=== PATIENT | female | born 1965 | race Caucasian/White ===

== ENCOUNTER 2016-06-28 09:19 | Inpatient (IN) | payer SELFPAY ==
[~2016-06-28] VITALS: Ht 170.2 cm; Wt 132.4 kg
[2016-06-28] VITALS (14 sets, daily range): BP systolic 101–126; BP diastolic 46–76; PULSE 71–122; RESP 15–24; O2SAT 93–100
[2016-06-28] MEDS ORDERED: Ipratropium 0.02% 0.5 mg/2.5 mL Inhalation Solution NEB ONE (09:30)
[2016-06-28] MEDS ORDERED: Albuterol 0.5% (5mg/mL) 20 mL Inhalation Solution NEB ONE (09:30)
--- NOTE | 2016-06-28 09:30 | ED.REPORT ---
HPI-Dyspnea / Wheezing Date of Service June 28, 2016 ED Provider: Douglas Kaye MD 50 y/o female with a hx of asthma and sleep apnea reports to the ED complaining of SOB, onset a couple of days ago. The pt reports she has been experiencing worsening SOB over the past month but the sx have significantly exacerbated in the last few days. Associated sx include non-productive cough, mild lower extremity swelling and chest tightness which is common during her asthma attacks. The pt denies fever, diaphoresis, chills, nausea and vomiting. She has had similar asthma attacks before but today's sx seem worse. The pt used her nebulizer three times before arriving at the ED but it didn't improve her sx. Typically, the pt takes cetirizine everyday and uses QVAR with a spacer prn which keeps her asthma under control. Recently, she has had to use her nebulizer more often. Pt reports being hospitalized due to her asthma 5 times in the past. Nursing Notes Stated Complaint: SHORT OF BREATH Chief Complaint: Respiratory Distress Nursing Notes Reviewed: Yes (F[employer]Tunes not reconciled) Allergies: Coded Allergies: prednisone (Verified Allergy, Unknown, 02/27/14) Scheduled Beclomethasone Dipropionate (Qvar) 8.7 Gm Aer.w.adap 1 PUFF INHALATION BID Cetirizine HCl (Zyrtec) 10 Mg Capsule 10 MG PO HS Multivitamin (Multi Vitamin Daily) 1 Each Tablet 1 EACH PO DAILY Scheduled PRN Albuterol Sulfate (Ventolin HFA Inhaler) 200 Puff/18 Gm Inhaler 1 PUFF INH Q4 PRN PRN For Wheezing General Time Seen by MD: 09:27 Chief Complaint Shortness of breath Hx Obtained From: Patient Arrived By: Walk-in Sudden in Onset?: No Onset Occurred: 2 days ago Symptom Duration: Since onset Location: : Substernal Quality: Cramping Severity: Current: Mild Severity: Maximum: Mild Recent Healthcare: No recent doctor visit Similar Sx Previous: Yes Past Medical History Past Medical History Notes: NOTE for 06/28/16: Patient reports gets joint pains and swelling w/prednisone, tolerates QVAR, does not tolerate prednisilone On MDI w/spacer at baseline (only needs irregularly), maintenance QVAR, and takes Zyrtec frequently. Has been using MDI, then nebulizer w/increasing frequency past few days. Past Medical History Asthma (patient reports 5 previous admissions, [facility], for asthma, never been intubated) Obstructive sleep apnea on CPAP Migraines Reports: Asthma Past Surgical History none reported Smoking History Never Smoker Ambulatory Status Independent Review of Systems Reports: Chest tightness Constitutional: Denies: Chills, Fever Respiratory: Reports: Non-productive cough, Shortness of breath Cardiovascular: Reports: Edema Skin: Denies Diaphoresis Complete sys rev & neg: except as marked. GI: Denies: Nausea, Vomiting Physical Exam Initial Vital Signs Vital Signs (First) Date Time Temp Pulse Resp B/P Pulse Ox O2 Delivery O2 Flow Rate FiO2 06/28/16 09:21 36.4 76 24 126/76 100 Room Air 06/28/16 09:30 2 Initial VS: Reviewed, Vital signs abnormal (tachypnea) Head / Eyes: Atraumatic, Normocephalic, PERRL ENT: Mucous membranes moist, Conjunctiva normal, No scleral icterus Abdomen / GI: Soft, Non-tender, No guarding, No rebound, No distention Extremities: Vascular intact, Neuro intact, No swelling, No tenderness Skin: Warm, Dry, No cyanosis Neurologic: Alert, Oriented, Nonfocal General/Constitutional: Awake, Alert, Cooperative Appearance / Presentation: Positive: Obese Neck: Atraumatic, Supple, Full range of motion Respiratory / Chest: Atraumatic, No chest tenderness Wheezing / Retractions: Positive: Wheezing mild Pt is visibly dyspneic with bronchospasms. Poor air movement. Cardiovascular: Regular rhythm, Heart sounds NL, No gallop, No murmurs Heart Rate / Rhythm: Positive: Tachycardia No pitting edema of lower extremities Interpretation & Diagnostics Lab Results Interpretation Result Diagram: 06/28/16 0943 06/28/16 0943 Test 06/28/16 09:43 06/28/16 13:25 White Blood Count 6.3th/mm3 (3.8-10.1) Red Blood Count 4.74mil/mm3 (3.90-5.20) Hemoglobin 13.6g/dL (12.0-15.6) Hematocrit 41.3% (35.0-46.0) Mean Corpuscular Volume 87.1fL (81-100) Mean Corpuscular Hemoglobin 28.7pg (27.0-35.0) Mean Corpuscular Hemoglobin Concent 32.9% (32.0-37.0) Red Cell Distribution Width 13.5% (12.3-15.4) Platelet Count 262bil/L (150-400) Neutrophils (%) (Auto) 57.7% (40-74) Lymphocytes (%) (Auto) 29.0% (14-46) Monocytes (%) (Auto) 7.6% (4-12) Eosinophils (%) (Auto) 5.0% (0-5) Basophils (%) (Auto) 0.5% (0-3) D-Dimer < 0.50mg/L FEU (<0.50) Sodium Level 141mEq/L (134-144) Potassium Level 3.3mEq/L (3.5-5.2) Chloride Level 103mEq/L (97-108) Carbon Dioxide Level 21mmol/L (18-29) Blood Urea Nitrogen 12mg/dL (6-24) Creatinine 0.77mg/dL (0.57-1.00) Estimat Glomerular Filtration Rate 113mL/min (>59) Glucose Level 109mg/dL (60-99) Calcium Level 9.4mg/dL (8.5-10.1) Total Bilirubin 0.6mg/dL (0.0-1.2) Aspartate Amino Transf (AST/SGOT) 20U/L (0-50) Alanine Aminotransferase (ALT/SGPT) 16U/L (0-32) Alkaline Phosphatase 103U/L (25-150) Troponin T 0.010ug/L (0.0-0.011) Pro-B-Type Natriuretic Peptide 82.64pg/mL (0-249) Total Protein 7.6g/dL (6.4-8.4) Albumin 3.9g/dL (3.4-5.0) Hold Whitt Top Tube Received (Received) Urine Color Straw (YELLOW) Urine Appearance Clear (CLEAR,HAZY) Urine pH 6.5 (5.0-8.0) Urine Specific [place] 1.015 (1.003-1.035) Urine Protein Negativemg/dL (NEG,TRACE) Urine Glucose (UA) Negativemg/dL (NEGATIVE) Urine Ketones Negativemg/dL (NEGATIVE) Urine Occult Blood Negative (NEGATIVE) Urine Nitrite Negative (NEGATIVE) Urine Bilirubin Negative (NEGATIVE) Urine Urobilinogen Normalmg/dL (NORMAL) Urine Leukocyte Esterase Negative (NEGATIVE) Urine RBC 0-2/hpf (0-2) Urine WBC 0-5/hpf (0-5) Urine Epithelial Cells Occasional/hpf (NONE-MOD) Urine Crystals None seen (NONE SEEN) Urine Bacteria None/hpf (NONE-FEW) Urine Hyaline Casts None/lpf (NONE) Urine Granular Casts None seen (NONE SEEN) Urine Waxy Casts None seen (NONE SEEN) Urine Red Blood Cell Casts None seen (NONE SEEN) Urine White Blood Cell Casts None seen (NONE SEEN) Urine Mucus None seen (None Seen) Urine Trichomonas None seen (NONE SEEN) Urine Yeast None (NONE SEEN) Urinalysis Comment None Urine Culture Reflexed Not indicated Lab Results Interpretation: CBC normal CMP mild hypokalemia-possibly albuterol induced given large doses administered Troponin negative ProBNP negative is no evidence of congestive heart failure D-dimer negative with no evidence of PE ECG Interpretation ECG Interpretation: EKG from urgent care demonstrates a normal sinus rhythm at a rate of 77, no acute ischemic changes identified, no prior EKG provided for comparison Time: 09:26 Interpreted by: ED physician ECG Interpretation: Normal sinus rhythm. Rate 69. No abnormalities. No interval change from the EKG taken at Urgent Care. Time: 09:50 Interpreted by: ED physician X-Ray Chest Interpretation Chest Xray Interpretation: IMPRESSION: No acute process. Dictated by: Cj Webber M.D. on 06/28/2016 at 9:51 Approved by: Cj Webber M.D. on 06/28/2016 at 9:52 View: Portable, 1 view Interpretation / Wet Read by: Interpret - Radiologist Re-Eval/Medical Decision Med Decision/Clinical Course This is a 50-year-old female with a history of asthma as had multitude of hospital admissions for asthma, but never been intubated before she feels like her asthma has been acting up over the past month, and then got worse over the past few days. He matters she reports an "allergy" to prednisone, indicating that it causes joint swelling and pain. She has been on daily Qvar without difficulty,. She has had no fever, no productive cough or clear infectious symptoms-she does have a mild dry cough which happens with her asthma. She has a test tightness that is typical of her asthma, but no other features suggesting a cardiac etiology. She arrives tachypneic, with audible bronchospasm-but not hypoxic and in only moderate distress. She is obese. The rest of her exam is normal except for the bronchospasm. The patient received multiple rounds of albuterol, she received magnesium, chest x-ray is negative, EKG revealed no acute ischemic changes, and blood work was normal including negative d-dimer, troponin, or markers suggest infectious or alternative pathology. Clinically everything is pointing at than an acute asthma exacerbation. Patient did seem to respond slightly to beta agonist, remains still symptomatic with ongoing mild bronchospasm for multitude of hours. She initially thought she was turning around and up she might go home-- after numerous rounds of nebulizers to the point of causing some tremulousness and tachycardia, the patient is still symptomatic and decided she is not adequate for discharge home and I agree. Currently the conversation regarding risks and benefits I have been able to persuade the patient rule out a dose of dexamethasone which was administered without apparent difficulty or consequence and was tolerating. The patient also received empiric magnesium. At this point the patient reveals mildly tachypnea, ongoing bronchospasm and all improved and does not require unit or even necessarily PCU care and is not required BiPAP therapy-the plan is admission for continued asthma exacerbation management. I am not finding indication for treatment with antibiotics at this time. Source of Hx: Old records Re-Evaluation/Progress #1: Time of Eval: 10:40 Re-Evaluation/Progress Note: Pt rechecked. Informed of the lab and imaging results. There is mild SOB Re-Evaluation/Progress #2: Time of Eval: 11:38 Re-Evaluation/Progress Note: Pt rechecked. Pt is jittery and is worried it is due to steroid. Informed the pt it is likely the increased dose of albuterol. Some SOB persists but pt reports feeling better overall. Re-Evaluation/Progress #3: Time of Eval: 15:17 Patient Status: Condition improved Re-Evaluation/Progress Note: Pt feels better than when she arrived but she is still bronchospastic and slightly SOB. Pt rechecked. Discussed lab, imaging results and plan to admit. Pt understands and agrees with the plan for admission. All questions addressed. Consultation : Referral / Consult Name: Steffanie Wolfe DO Consulted With: Hospitalist Call Returned at: 16:48 Melt Room Operator: Will see patient, Agrees with eval, Agrees with plan, Accepts admit Differential Diagnosis: Positive: Asthma, Respiratory insufficiency, Negative: Acute coronary syndrome, Allergic reaction, Carbon monoxide poisoning, Cardiogenic shock, Congestive heart failure, Exercise induced asthma , Hypertensive emergency, Hyperventilation, Inhalation injury, Myocardial infarction, Pneumonia, Pneumothorax, Respiratory failure Counseled Regarding: Diagnosis, Lab results, Need for admission Discharge & Departure Impression: Primary Impression: Acute asthma exacerbation Asthma severity: moderate persistent Qualified Code: J45.41 - Moderate persistent asthma with (acute) exacerbation Disposition: ADMITTED TO HOSPITAL Discharge Condition All VS Reviewed: Yes Referrals: Tulio Sterling MD (PCP) Scribe Attestation Portions of this note were transcribed by Srikanth Conrad. I, , personally performed the history, physical exam and medical decision-making;I reviewed and confirmed the accuracy of the information in the transcribed note. Signed by Han Jones. 06/28/16 [id number] copies to: Tulio Sterling MD, Matthew F MD June 28, 2016 09:30 Srikanth Conrad June 28, 2016 09:46
[2016-06-28 09:52] LABS: BASOPHILS % (AUTO) 0.5 % (0-3); MONOCYTES % (AUTO) 7.6 % (4-12); Mean Corpuscular Hemoglobin 28.7 pg (27.0-35.0); Mean Corpuscular Volume 87.1 fL (81-100); NEUTROPHILS % (AUTO) 57.7 % (40-74); Platelet Count 262 bil/L (150-400)
--- NOTE | 2016-06-28 09:53 | DRSVH ---
PROCEDURE: X-RAY CHEST ONE VIEW, PORTABLE ([id number]) INDICATIONS: SOB TECHNIQUE: One view of the chest was acquired. COMPARISON: None. FINDINGS: Surgical changes and devices: None. Lungs and pleura: No pleural effusions or pneumothorax. Lungs are clear. Mediastinum: Mediastinal contours appear normal. Heart size is normal. Bones and chest wall: No suspicious bony lesions. Overlying soft tissues appear unremarkable. IMPRESSION: No acute process. Dictated by: Cj Webber M.D. on 06/28/2016 at 9:51 Approved by: Cj Webber M.D. on 06/28/2016 at 9:52
[2016-06-28] MEDS ORDERED: Magnesium Sulf 2 Gm/50mL Water 2 GM in IV Premix 1 EACH IV ONE (09:55)
[2016-06-28] MEDS ORDERED: Dexamethasone Inj 10 MG in 0.9% Sodium Chloride-Pha MIX 50 ML IV ONE (09:55)
[2016-06-28] MEDS ORDERED: MULT-1018 PO (10:05)
[2016-06-28] MEDS ORDERED: CETI10CA PO (10:05)
[2016-06-28] MEDS ORDERED: ALBU18HF INH (10:05)
[2016-06-28] MEDS ORDERED: BECL8.7A6 INHALATION (10:05)
[2016-06-28 10:15] LABS: TROPONIN T 0.01 ug/L (0.0-0.011)
[2016-06-28] MEDS ORDERED: Albuterol 2.5 mg/3 mL Inhalation Solution NEB ONE ×3 (10:45→16:55)
[2016-06-28 13:42] LABS: APPEARANCE,URINE CLEAR (CLEAR,HAZY); COLOR,URINE STRAW (YELLOW); OCCULT BLOOD,URINE NEGATIVE (NEGATIVE); PH,URINE 6.5 (5.0-8.0); UROBILINOGEN,URINE NORMAL (NORMAL)
[2016-06-28] MEDS ORDERED: 0.9% Sodium Chloride 1,000 ML IV SCH (17:11)
[2016-06-28] MEDS ORDERED: Albuterol 2.5 mg/3 mL Inhalation Solution NEB PRN (17:15)
[2016-06-28] MEDS ORDERED: Alum-Mag Hydrox-Simeth 30 mL Suspension PO PRN ×2 (17:15→19:05)
[2016-06-28] MEDS ORDERED: Ondansetron 2 mg/mL 2 mL Inj IVPUSH PRN ×2 (17:15→19:05)
--- NOTE | 2016-06-28 18:36 | PCM.HPMED ---
Subjective Date of Service June 28, 2016 Primary Provider: Admitting Physician: Steffanie Wofle DO Primary Care Physician: Tulio Sterling MD Attending Physician: Steffanie Wolfe DO Allergies Coded Allergies: prednisone (Verified Allergy, Unknown, 06/28/16) PMH Social History Hx Alcohol Use: Yes (Social drinker) Hx Substance Use: No Smoking Status: Never Smoker Exam Vital Signs Vital Sign - Last Date Time Temp Pulse Resp B/P Pulse Ox O2 Delivery O2 Flow Rate FiO2 06/28/16 18:33 116 06/28/16 18:07 36.9 22 125/68 93 Room Air 06/28/16 17:31 2 06/28/16 17:18 28 Lab and Diagnostics Result Diagram: 06/28/16 0943 06/28/16 0943 Assessment & Plan HPI: Patient is a 50-year-old female who has a past medical history of asthma who presents today with increasing shortness of breath. The patient states that she generally does not need to use her albuterol inhaler very often however over the last few days she has noticed increased and usage of her inhaler and as she was using an every 3-4 hours she decided that she needed to come in to the emergency room. After 7 hours of being in the emergency room the patient was given multiple nebulizer treatments plus Decadron and she still was tachypneic and short of breath and it was thought that it would be best if the patient comes in for further monitoring and treatment. Patient currently complains of chest tightness, shortness of breath and denies abdominal pain nausea, vomiting, and diarrhea. Home medications: Albuterol inhaler when necessary Qvar inhaler twice a day Zyrtec daily Allergies: Prednisone -hives PMHx: Asthma SHx: Needle extracted from her foot Tubes in ears as a baby FHx: Grandmother 87 pulmonary fibrosis Maternal Grandfather late 50's early 60's secondary to [place] Father living age 80 HTN Mother living age 76 no medical problems SocHx: Occupation: Tobacco history: Quit in the 80's, smoked 1PPD for 5 years Alcohol use: Ocassionally/socially Drug use: Patient denies ROS: A complete review of systems was performed or attempted to be performed. Please see HPI for pertinent positives, all other systems are negatives. Physical Exam: GEN: Patient was awake, alert, responding appropriately to questions HEENT: Pupils equal round and reactive to light, extraocular eye muscles intact , Neck soft supple, trachea midline, nomocephalic/atraumatic CV: +S1/S2, regular rate and rhythm, no murmurs auscultated Respiratory: CTAB, no wheezes, rales, rhonchi GI: +bowel sounds x4, soft, compressible, nontender to palpation EXT: no clubbing, cyanosis, edema Neuro: Cranial nerves II-XII grossly intact Psych: mood and affect were appropriate Assessment and Plan 50-year-old female known asthmatic with acute asthma exacerbation Asthma exacerbation -Duo nebs every 4 -DuoNeb's every 2 when necessary while awake -Decadron 4 mg IV every 6 -Oxygen when necessary -Continue to monitor - Continue antihistamine daily Sleep apnea -Continue home CPAP use setting 10 DVT prophylaxis: SCDs and Lovenox Diet: Heart healthy Code Status: Full code Steffanie Wolfe DO June 28, 2016 18:36
--- NOTE | 2016-06-28 18:42 | NUR ---
Admission Patient admitted to the floor from ED at 1800. Admission questions and med list accomplished by primary RN. Vitals - t-36.9, bp-125/68, p-116, rr-22, o2-93 RA. Patient complained of 2/10 pain in the thoracic area related to coughing. Oriented patient to the room, placed bed in lowest position and call light within reach.
[2016-06-28] MEDS ORDERED: Albuterol-Ipratropium 3 mL Inhalation Solution NEB PRN (19:25)
[2016-06-28] MEDS: Albuterol-Ipratropium 3 mL Inhalation Solution NEB SCH (20:28)
[2016-06-28] MEDS ORDERED: Ipratropium 0.02% 0.5 mg/2.5 mL Inhalation Solution NEB SCH ×2 (20:30)
[2016-06-28] MEDS: Dexamethasone 4 mg/mL Inj IVPUSH SCH (21:09)
[2016-06-28] MEDS: Fluticasone 100 mCg Inhaler INHALATION SCH (21:19)
[2016-06-29] VITALS (14 sets, daily range): BP systolic 102–146; BP diastolic 58–82; PULSE 68–116; RESP 16–20; O2SAT 92–96
[2016-06-29] MEDS: Albuterol-Ipratropium 3 mL Inhalation Solution NEB SCH ×6 (00:13→19:44)
[2016-06-29] MEDS: Dexamethasone 4 mg/mL Inj IVPUSH SCH ×4 (02:15→20:38)
--- NOTE | 2016-06-29 05:45 | NUR ---
Cough/Pain: Pt continues to have a cough that causes mild pain, K pad and egg form bed cover obtained to help with back pain. Pt slept most of the night, pleasant and cooperative with care.
[2016-06-29 06:53] LABS: Mean Corpuscular Hemoglobin 28.3 pg (27.0-35.0); Mean Corpuscular Volume 87.9 fL (81-100)
[2016-06-29] MEDS: Fluticasone 100 mCg Inhaler INHALATION SCH ×2 (08:09→20:40)
--- NOTE | 2016-06-29 14:22 | NUR ---
Social Work-screening/readiness for discharge: Data:EMR Reviewed. Pt is a 50 y/o female who was admitted on 06/28/16 for asthma per H&P. Pt's insurance is self pay and PCP is Tulio Sterling MD. EMR Reviewed. Pt's readmission score 1. SW met with pt at bedside, SW role explained. Pt is alert and oriented x3. Pt resides at home where she remains independent with ADLS. Pt is independent at baseline and works. Pt has no HH or SNF history. SW discussed DPOA/ advanced directive, pt confirms she has not completed this, SW provided pt with copy. SW discussed pt's lack of insurance. Pt states she does not have insurance through her work. Pt states [facility] met with her and she is over income for Medicaid. SW provided her with [employer] application and [employer] care exchanged information. Pt states one of her children will provide transport home. SW provided phone number and plan on white board in room. No anticipated discharge needs. SW will continue to follow if needs arise. Assessment:Pt who is independent at baseline. Plan:Pt to discharge home today via POV. SW provided pt with [employer] application and health care exchange information. No anticipated discharge needs. SW will continue to follow if needs arise. [place] Jules
--- NOTE | 2016-06-29 19:45 | NUR ---
Cough Pt continues to have harsh nonproductive cough causing pain and discomfort. informed, Yulissa Dumont ordered TID. TPearls administered to pt, and reports reduced coughing and pain.
--- NOTE | 2016-06-29 20:41 | PCM.PNMED ---
Subjective Date of Service June 29, 2016 Subjective Patient was seen and examined at bedside today. Patient denies any chest pain, nausea, vomiting, diarrhea. Patient complains of cough and shortness of breath Overnight events: None Exam Vital Signs Vital Sign - Last Date Time Temp Pulse Resp B/P Pulse Ox O2 Delivery O2 Flow Rate FiO2 06/29/16 19:44 93 18 95 Room Air 06/29/16 19:00 36.8 146/82 06/29/16 04:17 10.00 06/29/16 00:13 21 Intake and Output 06/28/16 06/28/16 06/29/16 Cumulative From/Thru 15:00 23:00 07:00 06/28/16 09:21 - 06/29/16 05:44 Intake Total 876 ml 876 ml Balance 876 ml 876 ml IV Total 876 ml 876 ml Exam Physical Exam: GEN: Patient was awake, alert, responding appropriately to questions HEENT: Pupils equal round and reactive to light, extraocular eye muscles intact , Neck soft supple, trachea midline, nomocephalic/atraumatic CV: +S1/S2, regular rate and rhythm, no murmurs auscultated Respiratory: Positive for wheezing, coarse breath sounds, positive cough GI: +bowel sounds x4, soft, compressible, nontender to palpation EXT: no clubbing, cyanosis, edema Neuro: Cranial nerves II-XII grossly intact Psych: mood and affect were appropriate IVs and Medications Medications Reviewed: Medications were reviewed in detail Lab and Diagnostics Result Diagram: 06/29/1662406/29/16624 Assessment & Plan Assessment and Plan 50-year-old female known asthmatic with acute asthma exacerbation Asthma exacerbation -Duo nebs every 4 hours -DuoNeb's every 2 when necessary while awake -Decadron 4 mg IV every 6 -Oxygen when necessary -Continue to monitor - Continue antihistamine daily -Yulissa Neville Sleep apnea -Continue home CPAP use setting 10 DVT prophylaxis: SCDs and Lovenox Diet: Heart healthy Code Status: Full code Disposition: Patient still sounds rate 8 and a wheezy and has not yet regained her strength. Patient still needing regular DuoNeb treatments and steroids. Patient still needs 1-2 more days of treatment. Steffanie Wolfe DO June 29, 2016 20:41
[2016-06-29] MEDS ORDERED: HYDROcodone-APAP 5-325 mg Tablet PO ONE (21:45)
[2016-06-30] VITALS (14 sets, daily range): BP systolic 100–145; BP diastolic 60–85; PULSE 64–108; RESP 16–24; O2SAT 92–97
[2016-06-30] MEDS: Albuterol-Ipratropium 3 mL Inhalation Solution NEB SCH ×8 (00:01→23:33)
[2016-06-30] MEDS: Dexamethasone 4 mg/mL Inj IVPUSH SCH ×4 (03:11→20:52)
--- NOTE | 2016-06-30 06:32 | ABG ---
DateTimeAnalyzed 06:27:03 -_ pH ____7.467 - pCO2 ___32.2__ -mmHg pO2 ___74.3__ -mmHg HCO3- ___23.3__ -mmol/L ABE ___-0.2__ -mmol/L tHb ___12.9__ -g/dL O2Hb ___97.3__ -% COHb ____1.4__ -% MetHb ___-1.5__ -% sO2 ___97.2__ -% FIO2 ___21.0__ -% Drawn By blf - Spontaneous_RR 16 -b/min Oxygen Device 1 _ROOM AIR - B 754 -mmHg K+ ____4.3__ -mmol/L tO2 ___17.5__ -Vol% Alverto test _Positive -
[2016-06-30] MEDS: Fluticasone 100 mCg Inhaler INHALATION SCH ×2 (08:24→20:51)
[2016-06-30] MEDS: Polyethylene Glycol (PEG) 17 Gm Powder PO PRN (08:45)
--- NOTE | 2016-06-30 14:32 | NUR ---
[facility]uled [facility] 07 check in at 1005 AM for a 1030AM appointment with Updated REHABILITATION ENGINEER
--- NOTE | 2016-06-30 16:10 | PCM.PNMED ---
Subjective Date of Service June 30, 2016 Subjective Patient was seen and examined at bedside today. Patient denies any chest pain, nausea, vomiting, diarrhea. Patient still complains of cough, shortness of breath and chest tightness. Overnight events: None Exam Vital Signs Vital Sign - Last Date Time Temp Pulse Resp B/P Pulse Ox O2 Delivery O2 Flow Rate FiO2 06/30/16 15:57 81 18 94 Room Air 06/30/16 13:32 36.7 145/75 06/30/16 03:58 21 06/29/16 04:17 10.00 Intake and Output 06/29/16 06/29/16 06/30/16 Cumulative From/Thru 15:00 23:00 07:00 06/28/16 09:21 - 06/30/16 05:41 Intake Total 720 ml 2158 ml 800 ml 4554 ml Output Total 1400 ml 1100 ml 1900 ml 4400 ml Balance -680 ml 1058 ml -1100 ml 154 ml Intake Oral 720 ml 2158 ml 800 ml 3678 ml IV Total 876 ml Output Urine Total 1400 ml 1100 ml 1900 ml 4400 ml # Bowel Movements 0 0 0 Exam Physical Exam: GEN: Patient was awake, alert, responding appropriately to questions HEENT: Pupils equal round and reactive to light, extraocular eye muscles intact , Neck soft supple, trachea midline, nomocephalic/atraumatic CV: +S1/S2, regular rate and rhythm, no murmurs auscultated Respiratory: Positive wheezes no rhonchi, positive coarse breath sounds GI: +bowel sounds x4, soft, compressible, nontender to palpation EXT: no clubbing, cyanosis, edema Neuro: Cranial nerves II-XII grossly intact Psych: mood and affect were appropriate IVs and Medications Medications Reviewed: Medications were reviewed in detail Lab and Diagnostics Result Diagram: 06/29/1662406/29/16624 Assessment & Plan Assessment and Plan 50-year-old female known asthmatic with acute asthma exacerbation Asthma exacerbation -Duo nebs every 3 hours -DuoNeb's every 2 when necessary while awake -Decadron 4 mg IV every 6 -Oxygen when necessary -Continue to monitor - Continue antihistamine daily -Yulissa Neville Sleep apnea -Continue home CPAP use setting 10 DVT prophylaxis: SCDs and Lovenox Diet: Heart healthy Code Status: Full code Disposition: Patient still has asthma exacerbation. Patient's DuoNeb treatments have been increased to every 3 hours. As the patient progresses then we will once again decreased the nebulizers to every 4 hours and then when patient is stable on every 6 she should be ready for discharge home. At this time will continue IV steroids and DuoNeb's scheduled. Steffanie Wolfe DO June 30, 2016 16:10
--- NOTE | 2016-06-30 17:00 | NUR ---
Coughing: Patient has been coughing off and on today. She has been recieving scheduled nebulizer treatments. Tessalon pearls are helping with her cough.
[2016-06-30] MEDS ORDERED: HYDROcodone-APAP 5-325 mg Tablet PO PRN (22:05)
[2016-07-01] VITALS (16 sets, daily range): BP systolic 100–143; BP diastolic 55–77; PULSE 70–112; RESP 16–22; O2SAT 90–98
[2016-07-01] MEDS: Albuterol-Ipratropium 3 mL Inhalation Solution NEB SCH ×8 (02:35→23:30)
[2016-07-01] MEDS: Dexamethasone 4 mg/mL Inj IVPUSH SCH ×4 (02:37→19:35)
--- NOTE | 2016-07-01 03:40 | NUR ---
COUGH/PAIN Pt has persistent cough. Pt given prn tessalon ally w/ evening medication. Pt states pain in chest and ribs "8" at rest, "10" when coughing. Pt requested norco at bedtime to help w/ pain so pt could sleep. Pt had rec'd OT dose previous night which was effective. paged for prn pain medication orders. Rec'd OT dose, pt given OT dose of [place] 5/325mg. Pt able to rest more comfortably during night. Continue to monitor. Call light in reach. Intentional rounding.
[2016-07-01] MEDS: Polyethylene Glycol (PEG) 17 Gm Powder PO PRN (08:21)
[2016-07-01] MEDS: Fluticasone 100 mCg Inhaler INHALATION SCH ×2 (08:23→19:35)
[2016-07-01] MEDS: guaiFENesin 600 mg ER12 Tablet PO SCH ×2 (11:25→19:34)
--- NOTE | 2016-07-01 17:46 | NUR ---
Coughing: Patient continues to cough off and on Barking non productive cough. MD prescribed Mucinex scheduled which has been effective to decrease the coughing spells. Patient stated that with the cough her rib pain increases to 6-7 on 1-10 scale. Patient has been receiving scheduled Neb treatments with some relief of her asthmatic symptoms..
--- NOTE | 2016-07-01 17:52 | PCM.PNMED ---
Subjective Date of Service July 01, 2016 Subjective Patient was seen and examined at bedside today. Patient denies any chest pain, nausea, vomiting, diarrhea. Patient still complains of chest tightness and shortness of breath. Overnight events: None Exam Vital Signs Vital Sign - Last Date Time Temp Pulse Resp B/P Pulse Ox O2 Delivery O2 Flow Rate FiO2 07/01/16 17:45 36.9 85 18 100/58 92 Room Air 06/30/16 03:58 21 06/29/16 04:17 10.00 Intake and Output 06/30/16 06/30/16 07/01/16 Cumulative From/Thru 15:00 23:00 07:00 06/28/16 09:21 - 07/01/16 05:50 Intake Total 1446 ml 200 ml 6200 ml Output Total 900 ml 1578 ml 6878 ml Balance 546 ml -1378 ml -678 ml Intake Oral 1446 ml 200 ml 5324 ml IV Total 876 ml Output Urine Total 900 ml 1578 ml 6878 ml # Bowel Movements 0 Exam Physical Exam: GEN: Patient was awake, alert, responding appropriately to questions HEENT: Pupils equal round and reactive to light, extraocular eye muscles intact , Neck soft supple, trachea midline, nomocephalic/atraumatic CV: +S1/S2, regular rate and rhythm, no murmurs auscultated Respiratory: Positive wheezing and coarse breath sounds however improved from yesterday GI: +bowel sounds x4, soft, compressible, nontender to palpation EXT: no clubbing, cyanosis, edema Neuro: Cranial nerves II-XII grossly intact Psych: mood and affect were appropriate IVs and Medications Medications Reviewed: Medications were reviewed in detail Lab and Diagnostics Result Diagram: 06/29/1662406/29/16624 Assessment & Plan Assessment and Plan 50-year-old female known asthmatic with acute asthma exacerbation Asthma exacerbation -Duo nebs every 3 hours -DuoNeb's every 2 when necessary while awake -Increase Decadron to 6 mg IV every 6 -Oxygen when necessary -Continue to monitor - Continue antihistamine daily -Tessalon Perles -Add Mucinex twice a day Sleep apnea -Continue home CPAP use setting 10 DVT prophylaxis: SCDs and Lovenox Diet: Heart healthy Code Status: Full code Disposition: Patient still has asthma exacerbation. Patient's Decadron has been increased to 6 mg IV every 6 hours. At this time will continue IV steroids and DuoNeb's scheduled. Steffanie Wolfe DO July 01, 2016 17:51
[2016-07-02] VITALS (12 sets, daily range): BP systolic 109–131; BP diastolic 68–76; PULSE 68–103; RESP 18–20; O2SAT 94–97
[2016-07-02] MEDS: Albuterol-Ipratropium 3 mL Inhalation Solution NEB SCH ×5 (02:06→19:56)
[2016-07-02] MEDS: Dexamethasone 4 mg/mL Inj IVPUSH SCH ×4 (02:27→20:15)
--- NOTE | 2016-07-02 05:49 | NUR ---
uneventful night pt slept thru the night. Given Tylenol, tesselon,and mucinex with evening meds which appear to help with cough and sleep.
[2016-07-02] MEDS: Fluticasone 100 mCg Inhaler INHALATION SCH ×2 (09:09→20:15)
[2016-07-02] MEDS: guaiFENesin 600 mg ER12 Tablet PO SCH ×2 (09:10→20:15)
[2016-07-02] MEDS: Pantoprazole 40 mg ER24 Tablet PO SCH (11:35)
--- NOTE | 2016-07-02 16:20 | NUR ---
Asthma/GI discomfort: Noted resident has persistent cough related to Asthma that she reports causes her bilateral ribs to hurt. Continues on routine Mucinex with reported relief, denied needing prn Mucinex this shift. prn Tylenol 650mg provided for bilateral rib pain 6/10 with reported relief 1 hour later with a decrease to 2/10 scale. prn Tessalon Pearls provided for cough with reported decrease and relief in symptoms. SpO2 94% room air, R 18 and even, no respiratory distress. Lungs clear but slightly diminished in BLL, Afebrile. Reported GI discomfort, prn Maalox provided for GI distress with reported relief 30 minutes later. Patient stated she takes Prilosec in the mornings at home, contacted MD and obtained an order, resident updated.
--- NOTE | 2016-07-02 16:30 | PCM.PNMED ---
Subjective Date of Service July 02, 2016 Subjective Patient was seen and examined at bedside today. Patient denies any chest pain, nausea, vomiting, diarrhea. Patient still complains of shortness of breath however she states that it does seem like it is improving. Overnight events: None Exam Vital Signs Vital Sign - Last Date Time Temp Pulse Resp B/P Pulse Ox O2 Delivery O2 Flow Rate FiO2 07/02/16 16:19 89 20 97 Room Air 07/02/16 13:56 36.5 109/68 06/30/16 03:58 21 06/29/16 04:17 10.00 Intake and Output 07/01/16 07/01/16 07/02/16 Cumulative From/Thru 15:00 23:00 07:00 06/28/16 09:21 - 07/02/16 06:45 Intake Total 2100 ml 400 ml 8700 ml Output Total 1888 ml 1300 ml 35293 ml Balance 212 ml -900 ml -1366 ml Intake Oral 2100 ml 400 ml 7824 ml IV Total 876 ml Output Urine Total 1888 ml 1300 ml 09546 ml # Bowel Movements 0 0 0 Exam Physical Exam: GEN: Patient was awake, alert, responding appropriately to questions HEENT: Pupils equal round and reactive to light, extraocular eye muscles intact , Neck soft supple, trachea midline, nomocephalic/atraumatic CV: +S1/S2, regular rate and rhythm, no murmurs auscultated Respiratory: Positive wheezes and coarse breath sounds GI: +bowel sounds x4, soft, compressible, nontender to palpation EXT: no clubbing, cyanosis, edema Neuro: Cranial nerves II-XII grossly intact Psych: mood and affect were appropriate IVs and Medications Medications Reviewed: Medications were reviewed in detail Lab and Diagnostics Result Diagram: 06/29/1662406/29/16624 Assessment & Plan Assessment and Plan 50-year-old female known asthmatic with acute asthma exacerbation Asthma exacerbation -Increase Duo nebs to every 4 hours -DuoNeb's every 2 when necessary while awake -Continue Decadron to 6 mg IV every 6 -Oxygen when necessary -Continue to monitor - Continue antihistamine daily -Tessalon Perles -Continue Mucinex twice a day Sleep apnea -Continue home CPAP use setting 10 GERD -Protonix 40 mg daily DVT prophylaxis: SCDs and Lovenox Diet: Heart healthy Code Status: Full code Disposition: Patient still has asthma exacerbation. Continue Decadron with the patient. DuoNeb have been increased to every 4 hours. Once the patient is able to tolerate duo nebs every 6 hours and she should be ready to go home. This is a severe exacerbation of asthma for this particular patient. Steffanie Wolfe DO July 02, 2016 16:30
[2016-07-02] MEDS: HYDROmorphone 0.5 mg/0.5 mL iSecure Syringe IVPUSH PRN (23:38)
[2016-07-03] VITALS (11 sets, daily range): BP systolic 105–136; BP diastolic 66–83; PULSE 65–92; RESP 18–20; O2SAT 92–97
[2016-07-03] MEDS: Albuterol-Ipratropium 3 mL Inhalation Solution NEB SCH ×4 (00:29→20:27)
[2016-07-03] MEDS: Dexamethasone 4 mg/mL Inj IVPUSH SCH ×4 (03:10→21:25)
[2016-07-03] MEDS: HYDROmorphone 0.5 mg/0.5 mL iSecure Syringe IVPUSH PRN ×2 (07:18→21:20)
[2016-07-03] MEDS: guaiFENesin 600 mg ER12 Tablet PO SCH ×2 (08:32→21:23)
[2016-07-03] MEDS: Pantoprazole 40 mg ER24 Tablet PO SCH (08:32)
[2016-07-03] MEDS: Fluticasone 100 mCg Inhaler INHALATION SCH ×2 (08:33→21:26)
--- NOTE | 2016-07-03 14:25 | NUR ---
Social Work: Continued d/c planning Data: Pt is on day 5 of hospitalization. EMR reviewed. Pt discussed in rounds. states pt not medically stable for d/c today. HONING MACHINE OPERATOR PRODUCTION will continue to follow if needs arise. Plan: Pt will d/c home via POV when medically stable, annita care sharmin previously given. HONING MACHINE OPERATOR PRODUCTION will continue to follow if needs arise. [place] Cortes
--- NOTE | 2016-07-03 15:56 | PCM.PNMED ---
Subjective Date of Service July 03, 2016 Subjective Patient was seen and examined at bedside today. Patient denies any chest pain, shortness of breath, nausea, vomiting, diarrhea. Patient states that she still has shortness of breath but feels that it is improving but slower than what she would like. Overnight events: Patient states that she had a coughing fit yesterday and at that time she feels like she hold muscle around the right-sided ribs. Patient complains of right-sided rib pain today. Exam Vital Signs Vital Sign - Last Date Time Temp Pulse Resp B/P Pulse Ox O2 Delivery O2 Flow Rate FiO2 07/03/16 15:02 96 Room Air 07/03/16 12:28 67 20 07/03/16 10:54 36.6 105/66 06/30/16 03:58 21 06/29/16 04:17 10.00 Intake and Output 07/02/16 07/02/16 07/03/16 Cumulative From/Thru 15:00 23:00 07:00 06/28/16 09:21 - 07/03/16 06:40 Intake Total 10 ml 600 ml 9310 ml Output Total 1500 ml 60607 ml Balance 10 ml -900 ml -2256 ml Intake Oral 600 ml 8424 ml IV Total 10 ml 886 ml Output Urine Total 1500 ml 19315 ml # Bowel Movements 0 Exam Physical Exam: GEN: Patient was awake, alert, responding appropriately to questions HEENT: Pupils equal round and reactive to light, extraocular eye muscles intact , Neck soft supple, trachea midline, nomocephalic/atraumatic CV: +S1/S2, regular rate and rhythm, no murmurs auscultated Respiratory: Positive wheezes and no rales or rhonchi GI: +bowel sounds x4, soft, compressible, nontender to palpation EXT: no clubbing, cyanosis, edema Neuro: Cranial nerves II-XII grossly intact Psych: mood and affect were appropriate IVs and Medications Medications Reviewed: Medications were reviewed in detail Lab and Diagnostics Result Diagram: 06/29/1662406/29/16624 Assessment & Plan Assessment and Plan 50-year-old female known asthmatic with acute asthma exacerbation Asthma exacerbation -Increase Duo nebs to every 6 hours -DuoNeb's every 2 when necessary while awake -Continue Decadron to 6 mg IV every 6 -Oxygen when necessary -Continue to monitor - Continue antihistamine daily -Yulissa Neville -Continue Mucinex twice a day Right-sided rib pain -OMT -Toradol when necessary IV 30 mg every 6 hours Sleep apnea -Continue home CPAP use setting 10 GERD -Protonix 40 mg daily DVT prophylaxis: SCDs and Lovenox Diet: Heart healthy Code Status: Full code Disposition: The patient is progressing slowly however she is progressing. The patient did complain of right-sided rib pain secondary to coughing. The patient was treated with OMT seemed to help relieve some of her pain. Is on as the patient is able tolerate duo nebs every 6 hours she should be ready for discharge home tomorrow with a steroid taper. V[employer] Mechanical Devices: Venous Foot Pump Steffanie Wolfe DO July 03, 2016 15:56
--- NOTE | 2016-07-03 16:04 | PCM.PROC ---
Procedure Note Date of Service: July 03, 2016 Procedure: Procedure: Osteopathic Manipulative Treatment Subjective: The patient is a 50-year-old female who presents with complaint of right-sided rib pain secondary to coughing. The patient is having an acute asthma exacerbation and during one of her coughing fits she felt that she had a pole in the muscles around the right-sided ribs in the lower region. The patient states that moving seems to make the pain worse and lying still alleviates the pain. Risks and benefits of OMT were explained to the patient and verbal consent obtained. Osteopathic Structural Exam: Head: OA compression on the right Cervicals: C3-5 FRSr with paraspinal muscle hypertonicity on the right Thoracics:T1-T4 NRrSl Abdomen: Right-sided diaphragm hypertonicity greater than left Ribs: Inhaled ribs 7-10 right Upper extremities: Right-sided latissimus dorsi hypertonicity, right-sided pectoral major somatic dysfunction with tenderness to palpation Patient responded well to treatment although some of the techniques did cause some tenderness. The patient did have increased range of motion after treatment which was the goal of treatment. Osteopathic treatment modalities used: Myofascial release, Cranial, BLT, rib raising, and soft tissue technique Steffanie Wolfe DO July 03, 2016 16:04
--- NOTE | 2016-07-03 18:40 | NUR ---
Pain Pt. stated that her ribs on the right side were hurting at a 10 on the pain scale. Nurse administered Dilaudid. Pt. pain decreased to a 7. Dr. Wolfe assessed pt and determined that the ribs were "out of place" from coughing. Aiden added an order for toradol. Pt. is tolerating toradol well for pain management. States that it "works better and lasts longer".
[2016-07-04] VITALS (8 sets, daily range): BP systolic 110–128; BP diastolic 69–75; PULSE 73–91; RESP 16–21; O2SAT 91–97
[2016-07-04] MEDS: Albuterol-Ipratropium 3 mL Inhalation Solution NEB SCH ×3 (01:01→13:08)
[2016-07-04] MEDS: Dexamethasone 4 mg/mL Inj IVPUSH SCH ×2 (02:41→08:20)
--- NOTE | 2016-07-04 02:59 | NUR ---
Pain Level Pt reports a 9 out of 10 for pain located in right ribs. Let me know that Dr. Wolfe told her 3 of her ribs got "popped out of place" when coughing. Pt asked for pain medication. Primary RN and I discussed toradol, but pt wanted to try out the dilaudid again. When reassessed pt reported her pain level decreased and had been able rest comfortably.
[2016-07-04] MEDS: Pantoprazole 40 mg ER24 Tablet PO SCH (08:19)
[2016-07-04] MEDS: guaiFENesin 600 mg ER12 Tablet PO SCH (08:19)
[2016-07-04] MEDS: Fluticasone 100 mCg Inhaler INHALATION SCH (08:19)
[2016-07-04] MEDS ORDERED: IPRA3AMP NEB (11:58)
[2016-07-04] MEDS ORDERED: TRAM-14 PO (11:58)
[2016-07-04] MEDS ORDERED: GUAI600T86 PO (11:58)
[2016-07-04] MEDS ORDERED: BENZ100C8 PO (11:58)
--- NOTE | 2016-07-04 11:58 | NUR ---
Social Work: Discharge Data: Pt is on day 6 of hospitalization. EMR reviewed. D/C orders are in. No d/c planning needs at this time. AUTOMOBILE CARPETS MOLDER will continue to follow if needs arise. Assessment: Pt who is independent at baseline. Plan: Pt will d/c home via POV today. No d/c planning needs at this time. AUTOMOBILE CARPETS MOLDER will continue to follow if needs arise. [place] Cortes
--- NOTE | 2016-07-04 12:05 | PCM.DIMED ---
Discharge Instructions Date of Service July 04, 2016 Dates of Hospitalization June 28, 2016 at 17:16 Discharge Diagnosis Discharge Diagnosis Acute asthma exacerbation Rib pain secondary to latissimus dorsi strain on the right Obstructive sleep apnea Medication Instructions Being put on a steroid taper please take all of the steroids and take them as directed. Diet Heart Healthy Activity No restrictions (gradually returned to her normal daily activities) Call your provider Shortness of breath, Chest pain, Vomitting, Excessive diarrhea Patient Instructions It is very important that he follow up within 1 week for further management of your asthma. Follow-up Provider: Tulio Sterling MD Follow-up with PCP in: 1 week (please call to make an appointment with your primary care physician if you do not have a primary care physician please call [phone] as you may be seen in the residency clinic. It is very important that he follow up within 1 week.) Steffanie Wolfe DO July 04, 2016 12:04
[2016-07-04] MEDS ORDERED: DXM4T PO (12:12)
[2016-07-04] MEDS ORDERED: DEXA6TAB PO (12:12)
[2016-07-04] MEDS ORDERED: DEX1 PO (12:12)
--- NOTE | 2016-07-04 12:16 | PCM.DC.MED ---
Discharge Summary Date of Service July 04, 2016 Dates of Hospitalization Date of Hospital Admission June 28, 2016 at 17:16 Date of Discharge: July 04, 2016 Providers: Admitting Physician: Steffanie Wolfe DO Primary Care Physician: Tulio Sterling MD Attending Physician: Steffanie Wolfe DO Diagnosis at Time of Discharge Diagnosis at Time of Discharge Acute asthma exacerbation Rib pain secondary to latissimus dorsi strain on the right Obstructive sleep apnea Hospital Course Assessment and Plan 50-year-old female known asthmatic with acute asthma exacerbation Patient is a 50-year-old female who presented with a complaint of acute exacerbation of asthma. The patient was treated for several hours in the emergency room however she was unable to turn around and then was admitted. The patient did have an extremely difficult time with this particular exacerbation. Due to the patient's allergy with prednisone the patient was given Decadron 6 mg IV every 6 along with DuoNeb's every 3. We are able to wean the patient down from her to nebs to every 4 and then she was able to tolerate every 6. The patient still has a significant cough however she does sound when she is moving air better. The patient is being discharged home on a slow Decadron taper as this seemed to be fairly difficult for her to get over. The patient did have some right-sided rib pain secondary to excessive coughing and was treated with OMT and the patient stated that this seemed to help decrease her pain. The patient was given IV Toradol for the pain as well and is being sent home with a prescription of 20 mg of Ultram every 6 hours when necessary pain. The patient is being discharged home in stable condition. For full hospital course see below: Asthma exacerbation -Increase Duo nebs to every 6 hours -DuoNeb's every 2 when necessary while awake -Continue Decadron to 6 mg IV every 6 -Oxygen when necessary -Continue to monitor - Continue antihistamine daily -Tessalon Perles -Continue Mucinex twice a day Right-sided rib pain -OMT -Toradol when necessary IV 30 mg every 6 hours Sleep apnea -Continue home CPAP use setting 10 GERD -Protonix 40 mg daily DVT prophylaxis: SCDs and Lovenox Diet: Heart healthy Code Status: Full code Exam Vital Signs (Last) Date Time Temp Pulse Resp B/P Pulse Ox O2 Delivery O2 Flow Rate FiO2 07/04/16 10:16 36.7 76 16 110/69 97 Room Air 06/30/16 03:58 21 06/29/16 04:17 10.00 Exam Physical Exam: GEN: Patient was awake, alert, responding appropriately to questions HEENT: Pupils equal round and reactive to light, extraocular eye muscles intact , Neck soft supple, trachea midline, nomocephalic/atraumatic CV: +S1/S2, regular rate and rhythm, no murmurs auscultated Respiratory: Mild wheezes no rales or rhonchi improved from yesterday Musculoskeletal: Right-sided rib pain improved from yesterday GI: +bowel sounds x4, soft, compressible, nontender to palpation EXT: no clubbing, cyanosis, edema Neuro: Cranial nerves II-XII grossly intact Psych: mood and affect were appropriate Test 06/28/16 09:43 06/28/16 13:25 06/29/16 06:25 Neutrophils (%) (Auto) 57.7% (40-74) Lymphocytes (%) (Auto) 29.0% (14-46) Monocytes (%) (Auto) 7.6% (4-12) Eosinophils (%) (Auto) 5.0% (0-5) Basophils (%) (Auto) 0.5% (0-3) D-Dimer < 0.50mg/L FEU (<0.50) Troponin T 0.010ug/L (0.0-0.011) Pro-B-Type Natriuretic Peptide 82.64pg/mL (0-249) Hold Whitt Top Tube Received (Received) Urine Color Straw (YELLOW) Urine Appearance Clear (CLEAR,HAZY) Urine pH 6.5 (5.0-8.0) Urine Specific Dale 1.015 (1.003-1.035) Urine Protein Negativemg/dL (NEG,TRACE) Urine Glucose (UA) Negativemg/dL (NEGATIVE) Urine Ketones Negativemg/dL (NEGATIVE) Urine Occult Blood Negative (NEGATIVE) Urine Nitrite Negative (NEGATIVE) Urine Bilirubin Negative (NEGATIVE) Urine Urobilinogen Normalmg/dL (NORMAL) Urine Leukocyte Esterase Negative (NEGATIVE) Urine RBC 0-2/hpf (0-2) Urine WBC 0-5/hpf (0-5) Urine Epithelial Cells Occasional/hpf (NONE-MOD) Urine Crystals None seen (NONE SEEN) Urine Bacteria None/hpf (NONE-FEW) Urine Hyaline Casts None/lpf (NONE) Urine Granular Casts None seen (NONE SEEN) Urine Waxy Casts None seen (NONE SEEN) Urine Red Blood Cell Casts None seen (NONE SEEN) Urine White Blood Cell Casts None seen (NONE SEEN) Urine Mucus None seen (None Seen) Urine Trichomonas None seen (NONE SEEN) Urine Yeast None (NONE SEEN) Urinalysis Comment None Urine Culture Reflexed Not indicated White Blood Count 8.2th/mm3 (3.8-10.1) Red Blood Count 4.48mil/mm3 (3.90-5.20) Hemoglobin 12.7g/dL (12.0-15.6) Hematocrit 39.4% (35.0-46.0) Mean Corpuscular Volume 87.9fL (81-100) Mean Corpuscular Hemoglobin 28.3pg (27.0-35.0) Mean Corpuscular Hemoglobin Concent 32.2% (32.0-37.0) Red Cell Distribution Width 13.7% (12.3-15.4) Platelet Count 248bil/L (150-400) Sodium Level 142mEq/L (134-144) Potassium Level 4.5mEq/L (3.5-5.2) Chloride Level 109mEq/L (97-108) Carbon Dioxide Level 21mmol/L (18-29) Blood Urea Nitrogen 14mg/dL (6-24) Creatinine 0.72mg/dL (0.57-1.00) Estimat Glomerular Filtration Rate 122mL/min (>59) Glucose Level 148mg/dL (60-99) Calcium Level 9.3mg/dL (8.5-10.1) Total Bilirubin 0.3mg/dL (0.0-1.2) Aspartate Amino Transf (AST/SGOT) 16U/L (0-50) Alanine Aminotransferase (ALT/SGPT) 13U/L (0-32) Alkaline Phosphatase 96U/L (25-150) Total Protein 6.6g/dL (6.4-8.4) Albumin 3.6g/dL (3.4-5.0) Discharge Medications Discharge Medications Beclomethasone Dipropionate (Qvar) 8.7 Gm Aer.w.adap 1 PUFF INHALATION BID ( Reported) Cetirizine HCl (Zyrtec) 10 Mg Capsule 10 MG PO HS (Reported) Dexamethasone (Dexamethasone) 6 Mg Tablet 6 MG PO TID Take 3 times a day for 5 days Take 2 times a day for 4 days Take 1 time a day for 3 days Prescribed by: STEFFANIE WOLFE DO Dexamethasone (Dexamethasone) 4 Mg Tablet 4 MG PO DAILY Prescribed by: STEFFANIE WOLFE DO Dexamethasone (Dexamethasone) 1 Mg Tab 1 MG PO DAILY Prescribed by: STEFFANIE WOLFE DO Dexamethasone (Dexamethasone) 1 Mg Tab 2 MG PO DAILY Prescribed by: STEFFANIE WOLFE DO Guaifenesin (Guaifenesin ER) 600 Mg Tab.er.12h 1,200 MG PO Q12 Prescribed by: STEFFANIE WOLFE DO Ipratropium/Albuterol Sulfate (Iprat-Albut 0.5-3(2.5) mg/3 mL Inhalant Soln) 3 Ml Ampul.neb 3 ML NEB Q6 Prescribed by: STEFFANIE WOLFE DO Multivitamin (Multi Vitamin Daily) 1 Each Tablet 1 EACH PO DAILY (Reported) As needed Albuterol Sulfate (Ventolin HFA Inhaler) 200 Puff/18 Gm Inhaler 1 PUFF INH Q4 PRN PRN For Wheezing (Reported) Benzonatate (Benzonatate) 100 Mg Capsule 100 MG PO TID PRN PRN For Cough Prescribed by: STEFFANIE WOLFE DO Tramadol (Ultram) 50 Mg Tablet 50 MG PO Q4H PRN PRN For Mild Pain Prescribed by: STEFFANIE WOLFE DO Additional med instructions Being put on a steroid taper please take all of the steroids and take them as directed. Followup Plan Discharge Diet: Heart Healthy Discharge Activity: No restrictions (gradually returned to her normal daily activities) Patient Instructions It is very important that he follow up within 1 week for further management of your asthma. Follow-up Provider: Tulio Sterling MD Follow-up with PCP in: 1 week (please call to make an appointment with your primary care physician if you do not have a primary care physician please call [phone] as you may be seen in the residency clinic. It is very important that he follow up within 1 week.) Time spent Greater than 35 minutes copies to: Tulio Sterling MD, Precious L DO July 04, 2016 12:16
--- NOTE | 2016-07-04 14:11 | NUR ---
Discharge Patient discharged to home at 1345 with all belongings. Explained to patient new medications (benzonatate, dexamethasone, guaifenesin, ipratropium/albuterol sulfate, tramadol), when next doses are due, and discharge instructions. Pt. verbalized understanding. Discontinued IV intact. Discontinued telemetry. Vitals stable. Pt. left floor via wheelchair accompanied by WAFFLE MACHINE OPERATOR and family. No signs of distress.
== END 2016-07-04 13:40 | disposition home or self-care (01) | DRG 203 ==
LOC: SED 09:19 → MPC 17:16
PROVIDERS: ADMIT Neuromusculoskeletal Medicine & OMM; ATTEND Neuromusculoskeletal Medicine & OMM
PROC: 4A033B1 Measurement of Arterial Pressure, Peripheral, Percutaneous Approach (ICD-10-PCS; principal; 2016-06-30)
PROC: 7W01X1Z Osteopathic Treatment of Cervical Region using Fascial Release (ICD-10-PCS; 2016-07-03)
PROC: 7W02X1Z Osteopathic Treatment of Thoracic Region using Fascial Release (ICD-10-PCS; 2016-07-03)
PROC: 7W00X1Z Osteopathic Treatment of Head using Fascial Release (ICD-10-PCS; 2016-07-03)
DX: J45.41 Moderate persistent asthma with (acute) exacerbation (principal); G47.33 Obstructive sleep apnea (adult) (pediatric); S29.012A Strain of muscle and tendon of back wall of thorax, initial encounter; K21.9 Gastro-esophageal reflux disease without esophagitis; R07.81 Pleurodynia; Y92.230 Patient room in hospital as the place of occurrence of the external cause; Z79.51 Long term (current) use of inhaled steroids; X50.1XXA Overexertion from prolonged static or awkward postures, initial encounter

== ENCOUNTER 2016-08-08 07:51 | Inpatient (IN) | payer OTHER ==
[2016-08-08] VITALS (8 sets, daily range): BP systolic 114–143; BP diastolic 47–83; PULSE 100–116; RESP 16–26; O2SAT 93–98
[~2016-08-08] VITALS: Ht 170.2 cm; Wt 139.1 kg
[~2016-08-08 07:51] MED LIST: ALBU18HF INH; BECL8.7A6 INHALATION; BENZ100C8 PO; CETI10CA PO; DEX1 PO; DEXA6TAB PO; DXM4T PO; GUAI600T86 PO; IPRA3AMP NEB; MULT-1018 PO; TRAM-14 PO
[2016-08-08] MEDS ORDERED: Albuterol-Ipratropium 3 mL Inhalation Solution ONE ×2 (08:07→18:36)
[2016-08-08] MEDS ORDERED: Albuterol 2.5 mg/3 mL Inhalation Solution NEB ONE ×4 (08:07→09:30)
--- NOTE | 2016-08-08 08:13 | ED.REPORT ---
HPI-Dyspnea / Wheezing Date of Service Aug 08, 2016 ED Provider: Hima Parikh DO The pt is a 51 y/o female w/ a hx of asthma presenting to the ED complaining of shortness of breath onset yesterday. She has used her albuterol nebulizer 6 times in the last 2 days which helps reduce her symptoms for roughly 30 minutes. The pt also reports feeling like she has had a fever and having a non- productive cough. She had just finished a prednisone taper a week ago. The last time she had an asthma exacerbation was in June which caused her to be hospitalized for 6 days. Nursing Notes Stated Complaint: SHORTNESS OF BREATH/COUGH Chief Complaint: Respiratory Complaints Nursing Notes Reviewed: Yes Allergies: Coded Allergies: prednisone (Verified Allergy, Unknown, 08/08/16) Scheduled Beclomethasone Dipropionate (Qvar) 8.7 Gm Aer.w.adap 1 PUFF INHALATION BID Cetirizine HCl (Zyrtec) 10 Mg Capsule 10 MG PO HS Ipratropium/Albuterol Sulfate (Iprat-Albut 0.5-3(2.5) mg/3 mL Inhalant Soln) 3 Ml Ampul.neb 3 ML NEB Q6 Multivitamin (Multi Vitamin Daily) 1 Each Tablet 1 EACH PO DAILY Scheduled PRN Albuterol Sulfate (Ventolin HFA Inhaler) 200 Puff/18 Gm Inhaler 1 PUFF INH Q4 PRN PRN For Wheezing General Time Seen by MD: 07:57 Chief Complaint Shortness of breath Hx Obtained From: Patient Arrived By: Walk-in Onset Occurred: Yesterday Symptom Duration: Since onset Recent Healthcare: Recent doctor visit, Recent hospitalization Similar Sx Previous: Yes Past Medical History Past Medical History Asthma Obstructive sleep apnea on CPAP Migraines Reports: Asthma Past Surgical History none reported Smoking History Never Smoker Ambulatory Status Independent Review of Systems Constitutional: Reports: Fever Respiratory: Reports: Non-productive cough, Shortness of breath Complete sys rev & neg: except as marked. Physical Exam Initial Vital Signs Vital Signs (First) Date Time Temp Pulse Resp B/P Pulse Ox O2 Delivery O2 Flow Rate FiO2 08/08/16 07:56 36.8 116 24 133/83 94 Room Air Initial VS: Reviewed Head / Eyes: Atraumatic, Normocephalic, PERRL Abdomen / GI: Soft, Non-tender, No guarding, No rebound, No distention Back: No CVA tenderness Extremities: Vascular intact, Neuro intact, No swelling, No tenderness Skin: Warm, Dry, No cyanosis Neurologic: Alert, Oriented, Nonfocal Psychiatric: Mood/affect normal, Behavior normal, Normal thought content General/Constitutional: Awake, Alert Appearance / Presentation: Positive: Obese Neck: Atraumatic, Supple, Full range of motion Respiratory / Chest: No rales, No rhonchi Wheezing / Retractions: Positive: Wheezing moderate (R greater than L ) Cardiovascular: Regular rhythm, Heart sounds NL Heart Rate / Rhythm: Positive: Tachycardia (Mild ) Interpretation & Diagnostics Lab Results Interpretation Result Diagram: 08/08/16 0810 08/08/16 0810 Test 08/08/16 08:10 White Blood Count 9.7th/mm3 (3.8-10.1) Red Blood Count 4.53mil/mm3 (3.90-5.20) Hemoglobin 13.0g/dL (12.0-15.6) Hematocrit 40.2% (35.0-46.0) Mean Corpuscular Volume 88.7fL (81-100) Mean Corpuscular Hemoglobin 28.7pg (27.0-35.0) Mean Corpuscular Hemoglobin Concent 32.3% (32.0-37.0) Red Cell Distribution Width 14.4% (12.3-15.4) Platelet Count 283bil/L (150-400) Neutrophils (%) (Auto) 75.3% (40-74) Lymphocytes (%) (Auto) 16.6% (14-46) Monocytes (%) (Auto) 7.2% (4-12) Eosinophils (%) (Auto) 0.3% (0-5) Basophils (%) (Auto) 0.2% (0-3) Sodium Level 143mEq/L (134-144) Potassium Level 3.7mEq/L (3.5-5.2) Chloride Level 104mEq/L (97-108) Carbon Dioxide Level 25mmol/L (18-29) Blood Urea Nitrogen 9mg/dL (6-24) Creatinine 0.78mg/dL (0.57-1.00) Estimat Glomerular Filtration Rate 111mL/min (>59) Glucose Level 121mg/dL (60-99) Calcium Level 9.0mg/dL (8.5-10.1) Total Bilirubin 0.4mg/dL (0.0-1.2) Aspartate Amino Transf (AST/SGOT) 16U/L (0-50) Alanine Aminotransferase (ALT/SGPT) 18U/L (0-32) Alkaline Phosphatase 103U/L (25-150) Total Protein 6.8g/dL (6.4-8.4) Albumin 3.6g/dL (3.4-5.0) Hold Whitt Top Tube Received (Received) X-Ray Chest Interpretation Chest Xray Interpretation: IMPRESSION: No acute disease Dictated by: Marlo Barry M.D. on 08/08/2016 at 9:40 Approved by: Marlo Barry M.D. on 08/08/2016 at 9:40 View: AP & lat Interpretation / Wet Read by: Interpret - Radiologist Re-Eval/Medical Decision Med Decision/Clinical Course Consistent with status asthmaticus, patient was on regular outpatient therapy, seems to have some response to our treatment in the ER but continues to be wheezy and short of breath with minimal exertion. Concern that this patient would not tolerate home management given the volume of nebulizers she is received in the ER and continues to be symptomatic. Suspect she will need monitoring, regular nebulizer treatments, and parenteral steroids for clinical improvement. She will be admitted Re-Evaluation/Progress #1: Time of Eval: 09:03 Re-Evaluation/Progress Note: Pt rechecked and is feeling better. Re-Evaluation/Progress #2: Time of Eval: 09:23 Re-Evaluation/Progress Note: Pt rechecked. Discussed radiology and lab results. Pt describes her breathing being "rough but better". Discussed plan to order another dose of albuterol. Re-Evaluation/Progress #3: Time of Eval: 11:45 Re-Evaluation/Progress Note: Road test performed Re-Evaluation/Progress #4: Time of Eval: 11:50 Re-Evaluation/Progress Note: Pt rechecked. The road test did not cause a drop in O2 saturation level but the pt continued to be severely dyspneic w/ audible wheezing and bilat wheezing in lung [place]. She was also experiencing difficulty speaking and SOB. It was not safe for her to go home. Consultation : Referral / Consult Name: Flavio Aguila Consulted With: Hospitalist Call Returned at: 12:19 Floor Tech: Will see patient, Agrees with eval, Agrees with plan, Accepts admit Counseled Regarding: Diagnosis, Lab results, Need for follow-up, When/why to return to ED Discharge & Departure Impression: Primary Impression: Status asthmaticus Asthma severity: unspecified severity Qualified Code: J45.902 - Unspecified asthma with status asthmaticus Disposition: ADMITTED TO HOSPITAL Discharge Condition All VS Reviewed: Yes Condition: Stable Referrals: Tulio Sterling MD (PCP) Crit Care Except Billable Proc Time Spent: 30-74 minutes Services Performed: Patient management by me, Time spent at bedside, Reviewing imaging, Discussing patient care Critical Care Notes: See MDM Scribe Attestation Portions of this note were transcribed by Mitchell Martínez. I, Dr. Parikh personally performed the history, physical exam and medical decision-making; I reviewed and confirmed the accuracy of the information in the transcribed note. Signed by : Han Meza, 08/08/16 and 0835. copies to: Tulio Sterling MD, Timothy S DO Aug 08, 2016 08:13 Mitchell Martínez Aug 08, 2016 08:35
[2016-08-08] MEDS ORDERED: Ipratropium 0.02% 0.5 mg/2.5 mL Inhalation Solution NEB ONE (08:15)
[2016-08-08] MEDS ORDERED: 0.9% Sodium Chloride 1,000 ML IV ONE (08:19)
[2016-08-08] MEDS ORDERED: Albuterol-Ipratropium 3 mL Inhalation Solution NEB ONE (08:20)
[2016-08-08] MEDS ORDERED: Dexamethasone 20 mg/2 mL Oral Solution PO ONE ×2 (08:20→09:15)
[2016-08-08 08:34] LABS: BASOPHILS % (AUTO) 0.2 % (0-3); EOSINOPHILS % (AUTO) 0.3 % (0-5); MONOCYTES % (AUTO) 7.2 % (4-12); Mean Corpuscular Hemoglobin 28.7 pg (27.0-35.0); Mean Corpuscular Volume 88.7 fL (81-100); NEUTROPHILS % (AUTO) 75.3 % (40-74); Platelet Count 283 bil/L (150-400)
--- NOTE | 2016-08-08 09:42 | DRSVH ---
PROCEDURE: X-RAY CHEST, TWO VIEWS ([id number]) INDICATIONS: dyspnea TECHNIQUE: 2 views of the chest were acquired. COMPARISON: Located Within [facility], CR, XR CHEST 1VW (PORTABLE), 06/28/2016, 9:39. FINDINGS: Surgical changes and devices: None. Lungs and pleura: No pleural effusions or pneumothorax. Lungs are clear. Mediastinum: Mediastinal contours are normal. Heart size is normal. Bones and chest wall: No suspicious bony abnormalities. Soft tissues appear unremarkable. IMPRESSION: No acute disease Dictated by: Marlo Barry M.D. on 08/08/2016 at 9:40 Approved by: Marlo Barry M.D. on 08/08/2016 at 9:40
[2016-08-08] MEDS ORDERED: Alum-Mag Hydrox-Simeth 30 mL Suspension PO PRN ×2 (12:20→17:05)
[2016-08-08] MEDS ORDERED: Ondansetron 2 mg/mL 2 mL Inj IVPUSH PRN ×2 (12:20→17:05)
--- NOTE | 2016-08-08 15:15 | NUR ---
Admit to [facility]: Patient was brought from the ER to [facility] at 1350. Patient stated that she is not having pain issues. She is short of breath with activity. She has been recieving breathing treatments since coming to the hospital for her asthma and she stated that the breathing treatments are helping her. Patient was oriented to her room , call light and care givers. Her Admit questions were completed in the ER by the Admit nurse.
--- NOTE | 2016-08-08 16:51 | PCM.HPMED ---
Subjective Date of Service Aug 08, 2016 Primary Provider: Admitting Physician: Flavio Aguila Primary Care Physician: Tulio Sterling MD Attending Physician: Flavio Aguila Chief Complaint: SOB, cough History of Present Illness: 50-year-old female who has a past medical history of asthma who presents today with increasing shortness of breath since yesterday. She has used her albuterol nebulizer 6 times in the last 2 days which helps for about only 30 minutes. She had just finished a prednisone taper a week ago after a 6 day hospitalization for asthma exacerbation just one month ago. She says that 2 days ago she started feeling like coming down with "cold". She was having some subjective fever, cough, and nasal congestion. She denies any recent travel but her granddaughter had strep throat recently. She reports a history of allergy to Prednisone which causes her to get a rash and swelling of her joints. She does however tolerate other steroids and in the ED she received Decadron as well as Albuterol nebs. Review of Systems: Constitutional: Negative, except as otherwise mentioned in the history above. Ophthalmologic: Negative, except as otherwise mentioned in the history above. Cardiovascular: Negative, except as otherwise mentioned in the history above. Respiratory: Negative, except as otherwise mentioned in the history above. Gastrointestinal: Negative, except as otherwise mentioned in the history above. Genitourinary: Negative, except as otherwise mentioned in the history above. Musculoskeletal: Negative, except as otherwise mentioned in the history above. Neurological: Negative, except as otherwise mentioned in the history above. Psychiatric: Negative, except as otherwise mentioned in the history above. Hematologic/Lymphatic: Negative, except as otherwise mentioned in the history above. Allergic/Immunologic: Negative, except as otherwise mentioned in the history above. Allergies Coded Allergies: prednisone (Verified Allergy, Unknown, 08/08/16) Home Medications Albuterol inhaler when necessary Qvar inhaler twice a day Zyrtec daily PMH Asthma Depression in the past but off of medications for years and stable Obstructive sleep apnea Surgical History Needle extracted from her foot Tubes in ears as a baby Family History Grandmother 87 pulmonary fibrosis Maternal Grandfather late 50's early 60's secondary to ME Father living age 80 HTN Mother living age 76 no medical problems Social History Hx Alcohol Use: Yes (occasionally) Hx Substance Use: No Hx Tobacco Use: Yes Smoking Status: Former Smoker (Quit in the 80's, smoked 1PPD for 5 years ) Exam Vital Signs Vital Sign - Last Date Time Temp Pulse Resp B/P Pulse Ox O2 Delivery O2 Flow Rate FiO2 08/08/16 14:23 36.8 112 16 127/71 95 Room Air General: Alert, Oriented X3, Cooperative, No Acute Distress Eyes: PERRLA, EOMI, Scleral Anicteric Nose: Mucous Membr Moist/[place] Mouth: Mucous Membr Moist/[place] Chest & Lungs: Chest Wall Normal, Expiratory wheezes (mild and bilateral) Cardiovascular: Regular Rate/Rhythm Pulses: NL carotid, radial, femoral, DP, PT Abdomen: Non-tender, Non-distended, Normoactive bowel tones, Soft Extremities: No cyanosis/clubbing/edma bilat Neurological: Grossly Neurologically Intact, Cranial Nerves 2-12 Intact, Normal Speech Lymphatic: Other Lymph Nodes (no significant lymphadenopahty) Lab and Diagnostics Result Diagram: 08/08/16 0808/08/1610 X-Rays, CTs and MRIs Date of Service: 08/08/16818 PROCEDURE: X-RAY CHEST, TWO VIEWS ([id number]) IMPRESSION: No acute disease Dictated by: Marlo Barry M.D. on 08/08/2016 at 9:40 Approved by: Marlo Barry M.D. on 08/08/2016 at 9:40 Assessment & Plan 50-year-old female with history of asthma presents with acute asthma exacerbation # Acute asthma exacerbation, present on admission -Duo nebs every 6h -Albuterol every 2h prn -Has history of allergy to Prednisone but seems to be tolerating Decadron which will continue at 4 mg IV every 6 -Oxygen when necessary -Continue to monitor -Rule out viral infection by checking respiratory viral PCR # Sleep apnea -Continue home CPAP use setting 10 Expected length of hospital stay is greater than 2 midnights and likely 2-3 days GI Prophylaxis: Proton Pump Inhibitor VTE Prophylaxis: Theraputic Anticoag with Warfarin Resuscitation Status: CPR: Attempt Resuscitation (discussed and verified with the patient) Time spent 60 min Flavio Aguila Aug 08, 2016 16:51
[2016-08-08] MEDS ORDERED: Albuterol 1.25 mg/3 mL Inhalation Solution NEB PRN (17:05)
[2016-08-08] MEDS ORDERED: Polyethylene Glycol (PEG) 17 Gm Powder PO PRN (17:05)
[2016-08-08] MEDS: Dexamethasone 4 mg/mL Inj IVPUSH SCH (17:56)
[2016-08-08] MEDS ORDERED: Albuterol 2.5 mg/3 mL Inhalation Solution NEB PRN (18:50)
[2016-08-08] MEDS: Albuterol-Ipratropium 3 mL Inhalation Solution NEB SCH (19:46)
[2016-08-08] MEDS: Fluticasone 100 mCg Inhaler INHALATION SCH (20:33)
[2016-08-09] VITALS (7 sets, daily range): BP systolic 104–151; BP diastolic 57–81; PULSE 82–109; RESP 18–22; O2SAT 91–98
[2016-08-09] MEDS: Heparin 5,000 Unit/mL Inj SUBQ SCH ×3 (00:42→16:19)
[2016-08-09] MEDS: Dexamethasone 4 mg/mL Inj IVPUSH SCH ×3 (00:42→17:30)
[2016-08-09] MEDS: Albuterol-Ipratropium 3 mL Inhalation Solution NEB SCH ×4 (02:28→20:50)
[2016-08-09 05:43] LABS: BASOPHILS % (AUTO) 0 % (0-3); EOSINOPHILS % (AUTO) 0 % (0-5); MONOCYTES % (AUTO) 3.2 % (4-12); Mean Corpuscular Hemoglobin 28.8 pg (27.0-35.0); Mean Corpuscular Volume 88.2 fL (81-100); NEUTROPHILS % (AUTO) 89.4 % (40-74); Platelet Count 249 bil/L (150-400)
[2016-08-09 06:23] LABS: Magnesium 2.1 mg/dL (1.6-2.6)
[2016-08-09] MEDS: Pantoprazole 40 mg ER24 Tablet PO SCH (07:57)
[2016-08-09] MEDS ORDERED: Dexamethasone 4 mg/mL Inj IVPUSH SCH (08:30)
[2016-08-09] MEDS: Fluticasone 100 mCg Inhaler INHALATION SCH ×2 (08:41→21:41)
--- NOTE | 2016-08-09 10:35 | NUR ---
Social Work-screening/ readiness for discharge: Data:EMR reviewed. Pt is on day 51 y/o female who was admitted on 08/08/16 for status asthmatics per H&P. Pt's insurance is Self pay and PCP is Tulio Sterling MD. EMR reviewed. Pt's readmission score is 3. SW met with pt to discuss discharge planning, SW role explained. Pt resides at home with roommate where she remains independent with ADLs. Pt drives and does not use any DME. Pt has no HH or SNF history. SW discussed pt's lack of insurance. RCA to see pt. SW provided pt with [facility] care application and also healthcare exchange information. Pt confirms she lost her job since last admission and is working on finding a new job. Pt has no completed DPOA/ advanced directive, SW provided pt with a copy. Pt confirms she does not anticipate any discharge needs. Pt's family or friends to provide transport home. SW provided phone number and plan on white board in room. No discharge needs identified. All updated and agreeable to plan. Assessment:Pt who is independent at baseline. Plan:Pt to discharge home when medically stable via POV. [facility] [employer] application and Healthcare exchange information have been provided. No discharge needs identified. All updated and agreeable to plan. [place] Jules
[2016-08-09] MEDS: Nystatin 100,000 Unit/Gm 15 Gm Powder TOPICAL SCH ×2 (11:02→21:43)
[2016-08-09] MEDS: oxyCODONE-Acetamin 5-325 mg Tablet PO PRN ×2 (11:09→18:57)
--- NOTE | 2016-08-09 12:28 | PCM.PNMED ---
Subjective Date of Service Aug 09, 2016 Subjective Breathing continues to improve. Afebrile. Exam Vital Signs Vital Sign - Last Date Time Temp Pulse Resp B/P Pulse Ox O2 Delivery O2 Flow Rate FiO2 08/09/16 08:31 92 20 93 Room Air 08/09/16 05:33 36.5 151/76 Intake and Output 08/08/16 08/08/16 08/09/16 Cumulative From/Thru 15:00 23:00 07:00 08/08/16 07:56 - 08/09/16 05:46 Intake Total 1000 ml 872 ml 1136 ml 3008 ml Output Total 450 ml 1050 ml 1500 ml Balance 1000 ml 422 ml 86 ml 1508 ml Intake Oral 872 ml 1136 ml 2008 ml IV Total 1000 ml 1000 ml Output Urine Total 450 ml 1050 ml 1500 ml Exam General: Alert, Oriented X3, Cooperative, No Acute Distress Eyes: PERRLA, EOMI, Scleral Anicteric Nose: Mucous Membr Moist/[place] Mouth: Mucous Membr Moist/[place] Chest & Lungs: Chest Wall Normal, Expiratory wheezes (mild and bilateral) Cardiovascular: Regular Rate/Rhythm Pulses: NL carotid, radial, femoral, DP, PT Abdomen: Non-tender, Non-distended, Normoactive bowel tones, Soft Extremities: No cyanosis/clubbing/edma bilat Neurological: Grossly Neurologically Intact, Cranial Nerves 2-12 Intact, Normal Speech Lymphatic: Other Lymph Nodes (no significant lymphadenopahty) IVs and Medications Medications Reviewed: Medications were reviewed in detail Lab and Diagnostics Result Diagram: 08/09/16 0532 08/09/16 0532 X-Rays, CTs and MRIs Date of Service: 08/08/16 08 PROCEDURE: X-RAY CHEST, TWO VIEWS ([id number]) IMPRESSION: No acute disease Dictated by: Marlo Barry M.D. on 08/08/2016 at 9:40 Approved by: Marlo Barry M.D. on 08/08/2016 at 9:40 Assessment & Plan 50-year-old female with history of asthma presents with acute asthma exacerbation # Acute asthma exacerbation, present on admission -Duo nebs every 6h -Albuterol every 2h prn -Has history of allergy to Prednisone but seems to be tolerating Decadron. She was initially started at 4 mg IV every 6h. with tapered to 4 mg q8h -Oxygen when necessary -Continue to monitor - respiratory viral PCR negative -We will prescribe maintenance steroid inhaler upon discharge # Sleep apnea -Continue home CPAP use setting 10 Expected length of hospital stay is greater than 2 midnights and likely 2-3 days Disposition: Possible discharge tomorrow if continues to improve GI Prophylaxis: Proton Pump Inhibitor VTE Prophylaxis: Theraputic Anticoag with Warfarin Resuscitation Status: CPR: Attempt Resuscitation (discussed and verified with the patient) Andrzej Casillas MD Aug 09, 2016 12:28
--- NOTE | 2016-08-09 18:43 | NUR ---
Respiratory Pt. reported breathing better today. She has harsh, congested, and non-productive cough. Respiratory viral panel resulted, negative. R. rib pleuritic pain was treated with PRN Percocet and pillow splinting.
[2016-08-10] MEDS: Dexamethasone 4 mg/mL Inj IVPUSH SCH ×2 (01:50→08:56)
[2016-08-10] MEDS: Heparin 5,000 Unit/mL Inj SUBQ SCH ×2 (01:51→08:30)
[2016-08-10] MEDS: oxyCODONE-Acetamin 5-325 mg Tablet PO PRN ×2 (01:55→08:56)
[2016-08-10] MEDS: Albuterol-Ipratropium 3 mL Inhalation Solution NEB SCH ×2 (02:11→07:35)
[2016-08-10 02:12] VITALS: PULSE 82; RESP 18; O2SAT 94
[2016-08-10 04:15] VITALS: BP 150/84; PULSE 89; RESP 16; O2SAT 93
--- NOTE | 2016-08-10 07:10 | NUR ---
Respiration Pt mild SOB with activities, cough intermittently,non productive, pain at right ribs 4-5/10 with cough, Percocet given per pt requests, ice bad applied, pain improved and pt able to sleep. Coarse lung sounds bilaterally, a few wheezes, SPO2 WNL on RA. NEB administered by RT. VSS, afebrile. Continue monitoring.
[2016-08-10 07:36] VITALS: PULSE 115; RESP 28; O2SAT 93
--- NOTE | 2016-08-10 08:08 | DRSVH ---
PROCEDURE: X-RAY CHEST ONE VIEW, PORTABLE ([id number]) INDICATIONS: rib pain TECHNIQUE: One view of the chest was acquired. COMPARISON: [facility], CR, XR CHEST 2VW, 08/08/2016, 9:10. [facility], CR, XR CHEST 1VW (PORTABLE), 06/28/2016, 9:39. FINDINGS: Surgical changes and devices: None. Lungs and pleura: No pleural effusions or pneumothorax. Airspace opacity in the medial right lung b ase, otherwise lungs are hypoinflated and clear. Mediastinum: Mediastinal contours appear normal. Heart size is normal. Bones and chest wall: No suspicious bony lesions. Overlying soft tissues appear unremarkable. IMPRESSION: Left basilar atelectasis versus aspiration or pneumonia. Correlate clinically. Dictated by: Sabino John RRA Interpreted: Laxmi Awan MD on 08/09/2016 at 10:55 Approved by: Laxmi Awan M.D. on 08/10/2016 at 8:06
[2016-08-10] MEDS: Fluticasone 100 mCg Inhaler INHALATION SCH (08:53)
[2016-08-10] MEDS: Pantoprazole 40 mg ER24 Tablet PO SCH (08:54)
[2016-08-10] MEDS: Nystatin 100,000 Unit/Gm 15 Gm Powder TOPICAL SCH (08:54)
[2016-08-10 09:17] LABS: BASOPHILS % (AUTO) 0.1 % (0-3); EOSINOPHILS % (AUTO) 0 % (0-5); MONOCYTES % (AUTO) 2.8 % (4-12); Mean Corpuscular Hemoglobin 28.6 pg (27.0-35.0); Mean Corpuscular Volume 88.2 fL (81-100); NEUTROPHILS % (AUTO) 84.9 % (40-74); Platelet Count 298 bil/L (150-400)
--- NOTE | 2016-08-10 09:53 | PCM.DIMED ---
Discharge Instructions Date of Service Aug 10, 2016 Dates of Hospitalization Aug 08, 2016 at 12:36 Discharge Diagnosis Discharge Diagnosis # Acute asthma exacerbation, present on admission,improved # Sleep apnea Diet Discharge Diet: No restrictions Activity Discharge Activity: Limited until seen by PCP Call your provider Call your provider for: Fever or Chills, Shortness of breath, Bleeding, Chest pain, Vomitting, Excessive diarrhea, Weakness (unilateral) Patient Instructions Patient Instructions You were hospitalized due to asthma exacerbation.Please continue decadron taper .Please continue Qvar and albuterol as prescribed. Follow-up Provider: Tulio Sterling MD Follow-up with PCP in: 1 week Andrzej Casillas MD Aug 10, 2016 09:53
[2016-08-10] MEDS ORDERED: DEX1 PO (09:59)
[2016-08-10] MEDS ORDERED: BECL8.7A6 INHALATION (09:59)
--- NOTE | 2016-08-10 10:00 | NUR ---
Social Work-discharge: data:EMR Reviewed. Pt is on day 2 of hospitalization for status asthmatics per H&P. Pt is medically stable for discharge. Pt resides at home where she remains independent with ADLs. Pt does not have insurance [facility] application and healthcare exchange information has been provided. Pt's family to provide transport home today. No discharge needs identified. All updated and agreeable to plan. Assessment:Pt who is independent at baseline. Plan:Pt to discharge home today via POV. No discharge needs identified. All updated and agreeable to plan. [place] Jules
--- NOTE | 2016-08-10 10:05 | PCM.DC.MED ---
Discharge Summary Date of Service Aug 10, 2016 Dates of Hospitalization Date of Hospital Admission Aug 08, 2016 at 12:36 Date of Discharge: Aug 10, 2016 Providers: Admitting Physician: Flavio Aguila Primary Care Physician: Tulio Sterling MD Attending Physician: Flavio Aguila Diagnosis at Time of Discharge Diagnosis at Time of Discharge # Acute asthma exacerbation, present on admission,improved # Sleep apnea Consultations none Procedures XRay, CTs & MRIs Date of Service: 08/08/16 0819 PROCEDURE: X-RAY CHEST, TWO VIEWS ([id number]) IMPRESSION: No acute disease Dictated by: Marlo Barry M.D. on 08/08/2016 at 9:40 Approved by: Marlo Barry M.D. on 08/08/2016 at 9:40 Brief History per HPI 50-year-old female who has a past medical history of asthma who presents today with increasing shortness of breath since yesterday. She has used her albuterol nebulizer 6 times in the last 2 days which helps for about only 30 minutes. She had just finished a prednisone taper a week ago after a 6 day hospitalization for asthma exacerbation just one month ago. She says that 2 days ago she started feeling like coming down with "cold". She was having some subjective fever, cough, and nasal congestion. She denies any recent travel but her granddaughter had strep throat recently. She reports a history of allergy to Prednisone which causes her to get a rash and swelling of her joints. She does however tolerate other steroids and in the ED she received Decadron as well as Albuterol nebs. Hospital Course 50-year-old female with history of asthma presents with acute asthma exacerbation # Acute asthma exacerbation, present on admission -Duo nebs every 6h -Albuterol prn -Has history of allergy to Prednisone but seems to be tolerating Decadron. She was initially started at 4 mg IV every 6h. tapered to 4 mg q8h.discharge on decadron po taper - respiratory viral PCR negative -We will prescribe Qvar upon discharge.patient states she ran out of Qvar recently . -She had 2 episodes of exacerbation in the last 6 weeks. She never had any exacerbation requiring hospitalization for 8 years. She attributes recent recurrent exacerbations to high pollen count on this year and stress at home and new job # Sleep apnea -Continue home CPAP use setting 10 Disposition: discharge home Exam Vital Signs (Last) Date Time Temp Pulse Resp B/P Pulse Ox O2 Delivery O2 Flow Rate FiO2 08/10/16 07:36 115 28 93 Room Air 08/10/16 04:15 36.5 150/84 08/09/16 20:53 0.00 Exam General: Alert, Oriented X3, Cooperative, No Acute Distress Eyes: PERRLA, EOMI, Scleral Anicteric Nose: Mucous Membr Moist/[place] Mouth: Mucous Membr Moist/[place] Chest & Lungs: Chest Wall Normal, Expiratory wheezes (mild and bilateral) Cardiovascular: Regular Rate/Rhythm Pulses: NL carotid, radial, femoral, DP, PT Abdomen: Non-tender, Non-distended, Normoactive bowel tones, Soft Extremities: No cyanosis/clubbing/edma bilat Neurological: Grossly Neurologically Intact, Cranial Nerves 2-12 Intact, Normal Speech Lymphatic: Other Lymph Nodes (no significant lymphadenopahty) Test 08/08/16 08:10 08/10/16 08:40 Hold Whitt Top Tube Received (Received) White Blood Count 12.5th/mm3 (3.8-10.1) Red Blood Count 4.33mil/mm3 (3.90-5.20) Hemoglobin 12.4g/dL (12.0-15.6) Hematocrit 38.2% (35.0-46.0) Mean Corpuscular Volume 88.2fL (81-100) Mean Corpuscular Hemoglobin 28.6pg (27.0-35.0) Mean Corpuscular Hemoglobin Concent 32.5% (32.0-37.0) Red Cell Distribution Width 14.7% (12.3-15.4) Platelet Count 298bil/L (150-400) Neutrophils (%) (Auto) 84.9% (40-74) Lymphocytes (%) (Auto) 10.0% (14-46) Monocytes (%) (Auto) 2.8% (4-12) Eosinophils (%) (Auto) 0% (0-5) Basophils (%) (Auto) 0.1% (0-3) Discharge Medications Discharge Medications Beclomethasone Dipropionate (Qvar) 8.7 Gm Aer.w.adap 1 PUFF INHALATION BID Prescribed by: JOCELYNN GONZALES MD Cetirizine HCl (Zyrtec) 10 Mg Capsule 10 MG PO HS (Reported) Dexamethasone (Dexamethasone) 1 Mg Tab 4 MG PO BID Prescribed by: JOCELYNN GONZALES MD Ipratropium/Albuterol Sulfate (Iprat-Albut 0.5-3(2.5) mg/3 mL Inhalant Soln) 3 Ml Ampul.neb 3 ML NEB Q6 Prescribed by: FRAN AUSTIN DO Multivitamin (Multi Vitamin Daily) 1 Each Tablet 1 EACH PO DAILY (Reported) As needed Albuterol Sulfate (Ventolin HFA Inhaler) 200 Puff/18 Gm Inhaler 1 PUFF INH Q4 PRN PRN For Wheezing (Reported) Followup Plan Disposition: home Discharge Diet: No restrictions Discharge Activity: Limited until seen by PCP Patient Instructions You were hospitalized due to asthma exacerbation.Please continue decadron taper .Please continue Qvar and albuterol as prescribed. Follow-up Provider: Tulio Sterling MD Follow-up with PCP in: 1 week Time spent 35 minutes copies to: Tulio Sterling MD, Melaku MD Aug 10, 2016 10:05
[2016-08-10 11:36] LABS: Magnesium 1.9 mg/dL (1.6-2.6)
--- NOTE | 2016-08-10 11:51 | NUR ---
DISCHARGE Pt dc'd home this morning at 1140, req to amb off unit accompanied by son. Vital signs stable, alert and oriented, denies any pain and in no apparent distress. IV dc'd intact, all belongings returned. All instructions for diet, activity, medications and prescriptions and follow up reviewed with pt who reports understanding.
== END 2016-08-10 11:53 | disposition home or self-care (01) | DRG 141 ==
LOC: SED 07:51 → MPC 12:36
PROVIDERS: ADMIT Internal Medicine; ATTEND Internal Medicine
DX: J45.902 Unspecified asthma with status asthmaticus (principal); G47.33 Obstructive sleep apnea (adult) (pediatric); Z87.891 Personal history of nicotine dependence